=== PATIENT | female | born 1955 | race Caucasian/White ===

== ENCOUNTER 2022-12-29 12:42 | Outpatient (RCR) | payer BC, SELFPAY | END 2023-04-28 23:59 | disposition home or self-care (01) | PROVIDERS: Visit Provider Surgery | DX: R13.10 Dysphagia, unspecified (principal); Z51.89 Encounter for other specified aftercare | CPT/HCPCS: 92610 ==

== ENCOUNTER 2023-01-11 08:01 | Outpatient (CLI) | payer BC, SELFPAY ==
--- NOTE | 2023-01-11 08:15 | CRLHL7_ITS ---
For Patients: As a result of the Century Cures Act, medical imaging exams and procedure reports are released immediately into your electronic medical record. You may view this report before your referring provider. If you have questions, please contact your health care provider. INDICATION: DYSPHAGIA TECHNIQUE: Modified barium swallow. Fluoroscopic time 49 seconds. FINDINGS/IMPRESSION: Anatomical structures are normal. Swallowing mechanism appears within normal limits. No episodes of penetration or aspiration. No significant findings. Dictated by Jens Gayle MD @ 01/11/2023 11:24:06 AM (Electronically Signed)
== END 2023-01-11 08:02 | disposition home or self-care (01) ==
LOC: RAD 08:05
PROVIDERS: PCP Family Medicine; Visit Provider Surgery
DX: R13.10 Dysphagia, unspecified (principal)
CPT/HCPCS: 74230; 92611

== ENCOUNTER 2023-01-26 09:30 | Outpatient (CLI) | payer BC, SELFPAY ==
--- NOTE | 2023-01-26 07:24 | W.ANESCHARGE ---
Anesthesia Charges Start Date/Time Anesthesia Start Date: 01/26/23 Anesthesia Start Time: 10:26 Stop Date/Time Anesthesia Stop Date: 01/26/23 Anesthesia Stop Time: 10:40
--- NOTE | 2023-01-27 07:40 | W.ANESCHARGE ---
Anesthesia Charges Start Date/Time Anesthesia Start Date: 01/26/23 Anesthesia Start Time: 10:26 Stop Date/Time Anesthesia Stop Date: 01/26/23 Anesthesia Stop Time: 10:40
== END 2023-01-26 09:31 | disposition home or self-care (01) ==
LOC: OP CLINIC 09:32
PROVIDERS: PCP Family Medicine; Visit Provider Surgery
DX: R13.10 Dysphagia, unspecified (principal); K31.89 Other diseases of stomach and duodenum
CPT/HCPCS: 00731; 43239; 88305; J2405; J3010